=== PATIENT | male | born 1985 ===

== ENCOUNTER 2017-12-15 15:36 | Emergency (ER) | payer SELFPAY ==
--- NOTE | 2017-12-15 16:03 | UC ---
Dental HPI - HPI Summary HPI Summary: This is jamie Diongala Hutton documenting for attending Claire Echavarria MD. This patient is a 32 year old M presenting to [facility] [place] accompanied by his family member with a chief complaint of right lower dental pain that began 3 weeks ago. The patient rates the pain 10/10 in severity. Symptoms aggravated by hot/ cold. Symptoms alleviated by nothing, pt took ibuprofen without relief this morning. Patient reports ear pain. Patient denies fever and n/v. Pt states his teeth are broken off in his gums. Pt has a dentist appointment in [place] tomorrow. Pt doesn't speak [place] well so his family member translated. Patient declined translating service Patients medication reviewed this visit. - History of Current Complaint Chief Complaint: UCDentalProblem Stated Complaint: DENTAL PAIN Time Seen by Provider: 12/15/17 15:39 Hx Obtained From: Patient, Family/Honeycomb Decapper Onset/Duration: Lasting Weeks, Still Present Severity: Severe Pain Intensity: 10 Pain Scale Used: 0-10 Numeric Aggravating Factor(s): Heat, Cold Alleviating Factor(s): Nothing - Allergies/Home Medications Allergies/Adverse Reactions: Allergies Allergy/AdvReac Type Severity Reaction Status Date / Time No Known Allergies Allergy Verified 12/15/17 15:45 Home Medications: Home Medications Ibuprofen [Advil] 400 mg PO Q6HR PRN 12/15/17 [History Confirmed 12/15/17] PMH/Surg Hx/FS Hx/Imm Hx Previously Healthy: Yes Other History Of: Negative For: Hepatitis B, Hepatitis C, Anticoagulant Therapy - Surgical History Surgical History: None - Family History Known Family History: Positive: Diabetes - Social History Occupation: Employed Full-time Lives: With Family Alcohol Use: Occasionally Substance Use Type: None Smoking Status (MU): Heavy Every Day Tobacco Smoker Review of Systems Constitutional: Negative - fever ENT: Dental Pain, Ear Ache All Other Systems Reviewed And Are Negative: Yes Physical Exam - Summary Physical Exam Summary: Vital Signs Reviewed: Yes A+Ox3, no distress Eyes: Conjunctiva Clear, HARIS EOM intact and full ENT: Hearing grossly normal TM x 2 clear no fluid, no erythema ucula midline no exudate, no erythema Pt with poor dentition #29/30 broken at gumline + erythema + TTP no fluctance, no discharge + TTP mild edema right buccal membrane neck: supple\, no lymphadenopathy Respiratory: Positive: No respiratory distress, No accessory muscle use CTA throughout no w/r Cardiovascular: skin color reflect adequate perfusion RRR nl s1 s2 no m/r Musculoskeletal Exam: COREA x 4 without difficulty Neurological: Positive: Alert, ambulatory without difficulty Psychological: Positive: Normal Response To Family Skin: Positive: no rash, no ecchymosis Triage Information Reviewed: Yes Vital Signs: Initial Vital Signs Temp 99.3 F 12/15/17 15:46 Pulse 64 12/15/17 15:46 Resp 18 12/15/17 15:46 BP 142/83 12/15/17 15:46 Pulse Ox 99 12/15/17 15:46 Dental Complaint Course/Dx - Course Course Of Treatment: Blood pressure noted and patient informed to follow up with PCP. Patient presents with 3 weeks of progressive pain in his right lower teeth. Patient will continue to the gumline. Patient here working from out of town. Patient has a plant with a dentist tomorrow. Patient took 1 dose of Motrin this morning with little weak. Patient with dental caries and likely abscess. Patient given a prescription for Augmentin. Motrin Tylenol for pain. Patient's with warm salt water. Patient's to keep percent appointment tomorrow morning. Patient comfortable and in agreement with plan. - Differential Dx/Diagnosis Provider Diagnoses: denal abscess Discharge - Sign-Out/Discharge Documenting (check all that apply): Patient Departure - Discharge Plan Condition: Stable Disposition: HOME Prescriptions: Amoxicillin/Clavulanate TAB* [Augmentin TAB 875*] 875 mg PO BID #20 tab Patient Education Materials: Dental Abscess (ED) Referrals: No Primary Care Phys,NOPCP [Primary Care Provider] - Additional Instructions: - Okay to alternate ibuprofen (Advil, Motrin)600mg and Tylenol 1000mg every 3 hours for pain. Take with food. Do NOT take for more than 4-5 days -Swish and spit with warm salt water 3-4 times a day -Take anitbiotics as prescribed until gone -Stay well hydrated - frequent sips of cold fluids will be soothing to your throat (popsicles, jello, ice cream, ice water) - Okay to use over the counter ambusol every4-6 ours for pain. - Keep your appointment with your dentist tomorrow as scheduled - Billing Disposition and Condition Condition: STABLE Disposition: Home
[2017-12-15] MEDS ORDERED: Acetaminophen TAB* 325 MG PO ONE (16:05)
== END 2017-12-15 16:59 | disposition home or self-care (01) ==
LOC: UCEAST 15:36
DX: K04.7 Periapical abscess without sinus (principal); F17.200 Nicotine dependence, unspecified, uncomplicated
CPT/HCPCS: 99202; A9270-GY; G0463